=== PATIENT | male | born 1950 | race Caucasian/White ===

== ENCOUNTER 2016-05-23 15:37 | Outpatient (CLI) | payer OTHER, SELFPAY ==
--- NOTE | 2016-05-23 16:13 | RAD ---
PA AND LATERAL VIEWS CHEST: 05/23/16 HISTORY: Cough. FINDINGS: The heart size is borderline. The lungs are expanded without focal areas of consolidation, pneumotho rax or pleural effusions. There are degenerative changes in the spine. IMPRESSION: No radiographic evidence of acute cardiopulmonary process. POS: [facility]
--- NOTE | 2016-05-23 16:15 | RAD ---
LEFT RIB SERIES: 05/23/16 HISTORY: Cough and left rib pain. FINDINGS/IMPRESSION: No left rib fracture is seen. POS: [facility]
== END 2016-05-23 15:38 | disposition home or self-care (01) ==
LOC: MADRAD 15:37
PROVIDERS: ATTEND Family Medicine
DX: R07.81 Pleurodynia (principal); R05 Cough
CPT/HCPCS: 71020

== ENCOUNTER 2022-10-15 15:12 | Outpatient (CLI) | payer OTHER | END 2022-10-15 15:13 | disposition home or self-care (01) | LOC: MADRAD 15:12 | PROVIDERS: ATTEND Nurse Practitioner Family | DX: R07.89 Other chest pain (principal) | CPT/HCPCS: 71046 ==